=== PATIENT | female | born 1980 | race Caucasian/White ===

== ENCOUNTER 2016-03-01 21:32 | Emergency (ER) | payer OTHER ==
[~2016-03-01] VITALS: Ht 160 cm; Wt 128.0 kg
[~2016-03-01 21:32] MED LIST: BCPILLS PO
[2016-03-01 21:35] VITALS: TEMP 36.6; Ht 160 cm; Wt 128.0 kg
[2016-03-01] MEDS ORDERED: NAPROXEN 250 MG TAB PO STA (21:45)
--- NOTE | 2016-03-01 21:53 | EMERGENCY ROOM VISIT NOTE ---
ED Visit Note First contact with patient: 21:37 Chief Complaint: Pain in LEFT Wrist History of Present Illness: Patient is a 35-year-old female who presents to the emergency department today for evaluation of her LEFT wrist pain. She reports that while working today she noticed increasing pain to the medial surface of the LEFT wrist. She denies any trauma or injury to the affected wrist. She reports that she predominantly uses her RIGHT hand so she thought was odd that her pain was in her LEFT wrist. She reports some tingling into the fourth and fifth digits. She reports pain with range of motion of the affected wrist. She rates her current discomfort as a 9/10. She is tried nothing over-the- counter for her symptoms. She denies any history of fracture or injury to the affected area. She denies any associated hand pain, elbow pain, or shoulder pain. Medications: Reviewed and discussed with the patient. Allergies: No known allergies. PMH: No pertinent past medical history. SHx: Patient is a 35-year-old female who lives locally. ROS: All pertinent positive and negative review of systems are appropriately documented in the History of Present Illness. Physical Exam: VITAL SIGNS - Vital signs and nursing notes were reviewed. GENERAL - 35-year-old female appearing her stated age and in noticeable discomfort throughout the exam. MUSCULOSKELETAL - Active ROM of the LEFT wrist was limited in all directions secondary to discomfort. No edema noted. No palpable deformities. Moderate tenderness over the to the ulnar styloid process. No tenderness with squeezing the forearm. No tenderness extending into the carpals. No point-tenderness over the anatomic snuffbox. Mild pain elicited with supination and pronation of the forearm. No reproducible symptoms with palpation of the cubital tunnel. NEUROLOGIC - SENSORY: Spinothalamic tract was found to be intact with ability to discriminate sharp versus dull sensation at the level of the LEFT elbow down to the fingertips. No sensory deficits of the dorsal column were appreciated utilizing light touch for evaluation. VASCULAR - Capillary refill was brisk. +3/5 radial pulse palpated. IMAGING: LEFT WRIST W/NAVICULAR MIN 3 VIEWS CLINICAL HISTORY: Left wrist pain. Pain over ulnar styloid. COMPARISON: Left hand radiographs January 28, 2012 FINDINGS: Alignment of the left wrist is anatomic. No fracture is identified. Joint spaces are preserved. No erosions are identified. IMPRESSION: No fracture or dislocation of the left wrist. ED Course: Patient was seen and evaluated by myself. Patient was provided naproxen and prednisone for their complaint of pain. X-rays were obtained of the affected wrist. Imaging results as above. Images were discussed and reviewed with the patient who acknowledges understanding. Patient was provided a wrist splint for comfort. She will replace a short course of naproxen and prednisone for her likely tendinitis. She'll follow-up with her orthopedist from today's visit or return for any changing or worsening symptoms. Patient discharged home in good condition. In the evaluation and treatment of this patient, the following differential diagnoses were considered: Wrist Sprain, Wrist Fracture, Wrist Dislocation, Scapholunate Dissociation, Carpal Fracture, Metacarpal Fracture, Radial Styloid Process Fracture, Ulnar Styloid Process Fracture, or Carpal Tunnel Syndrome. Impression: LEFT Wrist Tendonitis Discharge Instructions: You have been treated in the Emergency Department for Wrist Pain - Tendonitis. You have been prescribed Naprosyn (naproxen). This is an anti-inflammatory medication used to help decrease your symptoms and improve your pain. Please take this medication as prescribed. It is best to take this medication with food. Please to not take this antibiotic with other NSAIDS including: Ibuprofen , Advil, Motrin, Aspirin, Aleve, Celebrex, etc. You have been prescribed Prednisone 50 mg to be taken orally once a day for the next 4 days. This is an anti-inflammatory medicine to be used to help minimize your symptoms. You should take the COMPLETE course of the medication. For pain control, you can use the following [id number]-[id number] medicines (if >12 yo): - Regular strength (325mg/tab) Tylenol (acetaminophen) 2 tabs every 4-6 hours as needed. Do not exceed 12 tablets in a 24 hour period. Avoid taking more than 4 grams (4000 mg) of Tylenol per day. This includes any other sources of acetaminophen you may take on a regular basis. - Regular strength (200 mg/tab) Advil (ibuprofen) 1-2 tabs every 4-6 hours as needed. Do not exceed a dose of 3200 mg per day. If this is a recent injury (<24 hrs), ice can be applied to the area of pain for the first 3 days to help decrease pain and inflammation. Use the wrist splint for comfort for the next week. Follow-up with orthopedic surgery in the next week to 10 days if your symptoms are not improving. Return to the Emergency Department if your current symptoms worsen despite treatment course outlined above, or if you develop any of the following symptoms : intractable pain despite aforementioned treatment course or new onset of numbness or tingling of the fingers. Problem List Medical Problems: (1) Diab Marina Wo Compl, Type Ii Or Unspec Type, Not Uncntrld Status: Chronic Surgical Problems: (1) H/O wisdom tooth extraction Status: Resolved Current/Historical Medications Scheduled Ibuprofen Tab (Advil), 600-800 MG PO BID Levonorgestrel (Iud) (Mirena), INT UTER UD Multivitamins/Minerals (Mvi With Minerals), 1 TAB PO DAILY Naproxen (Naprosyn), 500 MG PO BID Prednisone (Prednisone), 50 MG PO DAILY Allergies Coded Allergies: No Known Allergies (Verified , 12/12/14) Vital Signs Date Time Temp Pulse Resp B/P Pulse Ox O2 Delivery O2 Flow Rate FiO2 03/01/16 22:50 89 16 115/62 100 03/01/16 21:35 36.6 94 18 117/66 100 Room Air Medications Administered Medications (Trade) Dose Ordered Sig/Garth Route Start Time Stop Time Status Last Admin Dose Admin Naproxen (Naprosyn Tab) 500 mg NOW STAT PO 03/01/16 21:45 03/01/16 21:46 DC 03/01/16 21:53 500 MG Prednisone (PredniSONE TAB) 60 mg NOW STAT PO 03/01/16 22:22 03/01/16 22:23 DC 03/01/16 22:47 60 MG Departure Information Impression Primary Impression: Wrist pain, left Additional Impression: Tendonitis of wrist, left Dispostion Home / Self-Care Condition GOOD Prescriptions Naproxen (Naprosyn) 500 Mg Tab 500 MG PO BID for 7 Days, #14 TAB Prov: Nithin Escobar PA-C 03/01/16 Prednisone (Prednisone) 50 Mg Tab 50 MG PO DAILY for 4 Days, #4 TAB Prov: Nithin Escobar PA-C 03/01/16 Referrals Andreas Tavera D.O. (PCP) Patient Instructions A Signature Page, [facility] Additional Instructions You have been treated in the Emergency Department for Wrist Pain - Tendonitis. You have been prescribed Naprosyn (naproxen). This is an anti-inflammatory medication used to help decrease your symptoms and improve your pain. Please take this medication as prescribed. It is best to take this medication with food. Please to not take this antibiotic with other NSAIDS including: Ibuprofen , Advil, Motrin, Aspirin, Aleve, Celebrex, etc. You have been prescribed Prednisone 50 mg to be taken orally once a day for the next 4 days. This is an anti-inflammatory medicine to be used to help minimize your symptoms. You should take the COMPLETE course of the medication. For pain control, you can use the following cyau-auh-[id number] medicines (if >12 yo): - Regular strength (325mg/tab) Tylenol (acetaminophen) 2 tabs every 4-6 hours as needed. Do not exceed 12 tablets in a 24 hour period. Avoid taking more than 4 grams (4000 mg) of Tylenol per day. This includes any other sources of acetaminophen you may take on a regular basis. - Regular strength (200 mg/tab) Advil (ibuprofen) 1-2 tabs every 4-6 hours as needed. Do not exceed a dose of 3200 mg per day. If this is a recent injury (<24 hrs), ice can be applied to the area of pain for the first 3 days to help decrease pain and inflammation. Use the wrist splint for comfort for the next week. Follow-up with orthopedic surgery in the next week to 10 days if your symptoms are not improving. Return to the Emergency Department if your current symptoms worsen despite treatment course outlined above, or if you develop any of the following symptoms : intractable pain despite aforementioned treatment course or new onset of numbness or tingling of the fingers.
[2016-03-01] MEDS ORDERED: MULT-513 PO (21:54)
[2016-03-01] MEDS ORDERED: IBUP-103 PO ×2 (21:54)
[2016-03-01] MEDS ORDERED: LEVOIUD INT UTER (21:54)
--- NOTE | 2016-03-01 22:09 | DIAGNOSTIC IMAGING REPORT ---
LEFT WRIST W/NAVICULAR MIN 3 VIEWS CLINICAL HISTORY: Left wrist pain. Pain over ulnar styloid. COMPARISON: Left hand radiographs January 28, 2012 FINDINGS: Alignment of the left wrist is anatomic. No fracture is identified. Joint spaces are preserved. No erosions are identified. IMPRESSION: No fracture or dislocation of the left wrist. Electronically signed by: Lavell Amaro M.D. 03/01/2016 10:07 PM Dictated Date/Time: 03/01/2016 10:05 PM
[2016-03-01] MEDS ORDERED: NAPR-1169 PO (22:26)
[2016-03-01] MEDS ORDERED: PRED50TA PO (22:26)
[2016-03-01 22:50] VITALS: BP 115/62; PULSE 89; O2SAT 100
== END 2016-03-01 22:50 | disposition home or self-care (01) ==
LOC: C.EDB 21:34 → C.EDD 22:50
DX: M25.532 Pain in left wrist (principal); M65.9 Synovitis and tenosynovitis, unspecified; E11.9 Type 2 diabetes mellitus without complications; Z79.52 Long term (current) use of systemic steroids

== ENCOUNTER 2017-02-05 12:44 | Emergency (ER) | payer OTHER ==
[~2017-02-05] VITALS: Ht 160 cm; Wt 120.4 kg
[~2017-02-05 12:44] MED LIST changes: -BCPILLS PO; +IBUP-103 PO; +LEVOIUD INT UTER; +MULT-513 PO
[2017-02-05 12:53] VITALS: TEMP 37.1; Ht 160 cm; Wt 120.4 kg
--- NOTE | 2017-02-05 13:12 | EMERGENCY ROOM VISIT NOTE ---
History Report prepared by Cassieibsherita: So Rivero Under the Supervision of: Dr. Michael Mera M.D. First contact with patient: 13:01 Chief Complaint: ALLERGIC REACTION Stated Complaint: ALLERGIC REACTION, HIVES Nursing Triage Summary: patient c/o generalized rash x2 days. patient states "it may be from my detergent." patient states she was given steriods on wednesday no relief. rash noted to bilateral arms and trunk in triage History of Present Illness The patient is a 36 year old female who presents to the Emergency Room with complaints of a worsening rash for the past 2 days. She states she developed a generalized itchy rash over her entire body and initially thought the rash may have been from a new detergent she started using. 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 She has also been taking Benadryl, but has not taken it since she was placed on steroids. The patient notes she was recently started on Contrave for weight loss, but did not take it today as she was concerned it may have been causing the rash. She denies any swelling in her throat or difficulty breathing. 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 A total of ten systems were reviewed and were otherwise negative. Past Medical & Surgical Medical Problems: (1) Diab Marina Wo Compl, Type Ii Or Unspec Type, Not Uncntrld Surgical Problems: (1) H/O wisdom tooth extraction Social History Smoking Status: Never Smoker Smokeless Tobacco Use: No Alcohol Use: occasionally Drug Use: none Marital Status: Housing Status: lives with family Occupation Status: employed Current/Historical Medications Scheduled Bupropion (Wellbutrin Sr), 100 MG PO DAILY Levonorgestrel (Iud) (Mirena), INT UTER UD Naltrexone Hcl (Naltrexone Hcl), 25 MG PO QAM Ranitidine Hcl (Zantac), 150 MG PO BID Allergies Coded Allergies: No Known Allergies (Verified , 02/05/17) Physical Exam Vital Signs Date Time Temp Pulse Resp B/P (MAP) Pulse Ox O2 Delivery O2 Flow Rate FiO2 02/05/17 13:39 93 17 114/67 98 02/05/17 12:58 96 Room Air 02/05/17 12:53 37.1 100 18 121/66 93 Room Air Physical Exam GENERAL: Awake, alert, well-appearing, in no distress HENT: Normocephalic, atraumatic. Oropharynx unremarkable. No oropharyngeal erythema or edema, no tongue deviation or trismus. EYES: Normal conjunctiva. Sclera non-icteric. NECK: Supple. No nuchal rigidity. FROM. No JVD. RESPIRATORY: Clear to auscultation. CARDIAC: Regular rate, normal rhythm. Extremities warm and well perfused. Pulses equal. ABDOMEN: Soft, non-distended. No tenderness to palpation. No rebound or guarding. No masses. RECTAL: Deferred. MUSCULOSKELETAL: Chest examination reveals no tenderness. The back is symmetrical on inspection without obvious abnormality. There is no CVA tenderness to palpation. No joint edema. LOWER EXTREMITIES: Calves are equal size bilaterally and non-tender. No edema. No discoloration. NEURO: Normal sensorium. No sensory or motor deficits noted. SKIN: Scattered raised erythematous blanchable patches, consistent with hives, located diffusely over the face, chest, torso and extremities. No jaundice noted. Medical Decision & Procedures Medications Administered Medications (Trade) Dose Ordered Sig/Garth Route Start Time Stop Time Status Last Admin Dose Admin Ranitidine HCl (zANTac TAB) 150 mg NOW ONCE PO 02/05/17 13:15 02/05/17 13:16 DC 02/05/17 13:32 150 MG ED Course 1303: The patient was evaluated in room C8. A complete history and physical exam was performed. 1335: I reevaluated the patient. She is feeling well and resting comfortably. I discussed her discharge instructions and she verbalized complete understanding and agreement. Medical Decision I reviewed the patient's past medical history, medications, and the nursing notes as described above. Differential Diagnoses: Mild allergic reaction and contact dermatitis. The patient is a 36 y/o woman who presents to the ED with persistent pruritis and erythematous rash per HPI. On arrival the patient is in NAD, AFVSS. On exam patient has diffused patches of raised, blanchable erythema c/w hives. No oropharyngeal involvement. No stridor. Clear lungs. Patient already on day 2 of prednisone taper and taking hydroxyzine.Given this, will add Zantac to complete treatment for allergic reaction. Plan for pcp f/u. Findings and plan for follow- up reviewed with patient. Patient agreeable and d/c'd per discharge instructions. Medication Reconcilliation Current Medication List: was personally reviewed by me Blood Pressure Screening Patient's blood pressure: Normal blood pressure Blood pressure disposition: Did not require urgent referral Impression Primary Impression: Allergic reaction Additional Impression: Urticaria Scribe Attestation The scribe's documentation has been prepared under my direction and personally reviewed by me in its entirety. I confirm that the note above accurately reflects all work, treatment, procedures, and medical decision making performed by me. Departure Information Dispostion Home / Self-Care Prescriptions Ranitidine Hcl (ZANTAC) 150 Mg Tab 150 MG PO BID for 7 Days, #14 TAB Prov: Michael Mera M.D. 02/05/17 Referrals Andreas Tavera D.O. (PCP) Patient Instructions ED Allergic Reaction General Other, My [facility] Additional Instructions Please follow up with your primary care physician in the next 1-3 days for re- evaluation. Otherwise, your exam did not show signs of an emergent condition at this time. Continue your current medications as prescribed by your doctor. Additional take Zantac for additional relief of allergic symptoms. Return to the emergency department for worsening symptoms as described in the accompanying instructions. Problem Qualifiers
[2017-02-05] MEDS ORDERED: RANITIDINE HCL 150 MG TAB PO ONE (13:15)
[2017-02-05] MEDS ORDERED: BUPR100T8 PO (13:23)
[2017-02-05] MEDS ORDERED: NALT50TA5 PO (13:23)
[2017-02-05] MEDS ORDERED: RANI150T3 PO (13:25)
[2017-02-05 13:39] VITALS: BP 114/67; PULSE 93; O2SAT 98
== END 2017-02-05 13:40 | disposition home or self-care (01) ==
LOC: C.EDB 12:45 → C.EDC 13:40
DX: T78.40XA Allergy, unspecified, initial encounter (principal); L50.9 Urticaria, unspecified; X58.XXXA Exposure to other specified factors, initial encounter; E11.9 Type 2 diabetes mellitus without complications; Z79.899 Other long term (current) drug therapy